=== PATIENT | female | born 1955 | race Caucasian/White ===

== ENCOUNTER → 2020-05-21 10:31 | Outpatient (CLI) | payer OTHER, SELFPAY ==
[2020-05-21] MEDS: COVID-19 VACC, Ad26(JANSSEN)/PF 0.5 ML IM (10:42)
== END ==
PROVIDERS: PCP Physician Assistant Medical; Visit Provider Internal Medicine
DX: Z23 Encounter for immunization (principal)
CPT/HCPCS: 0031A; 91303

== ENCOUNTER → 2020-06-11 07:20 | Outpatient (CLI) | payer OTHER, SELFPAY ==
[2020-06-11 08:14] LABS: Alanine Aminotransferase 26 IU/L (<35); Albumin 4.6 g/dL (3.5-5.0); Albumin Globulin Ratio 1.5 (1.0-2.8); Alkaline Phosphatase 53 U/L (38-126); Aspartate Aminotransferase 29 IU/L (14-36); BUN Creatinine Ratio 20.3 (6-22); Bilirubin Total 0.3 mg/dL (0.2-1.3); Blood Urea Nitrogen 12 mg/dL (7-17); Calcium 9.8 mg/dL (8.4-10.2); Carbon Dioxide 29 mmol/L (22-32); Chloride 102 mmol/L (98-107); Cholesterol 270 mg/dL (140-199); Estimated Glomerular Filt Rate > 60.0 mL/min (>60); Glucose 103 mg/dL (80-110); HDL Cholesterol 97 mg/dL (40-60); HEMOLYSIS < 15 (0-50); LDL Cholesterol Calculated 161 mg/dL (<100); Sodium 138 mmol/L (137-145); Total Protein 7.6 g/dL (6.3-8.2); Triglycerides 61 mg/dL (35-150)
== END ==
PROVIDERS: PCP Internal Medicine; Referring Provider Internal Medicine; Visit Provider Internal Medicine
DX: Z13.220 Encounter for screening for lipoid disorders (principal); Z13.6 Encounter for screening for cardiovascular disorders
CPT/HCPCS: 36415; 80053; 80061

== ENCOUNTER → 2020-07-11 10:20 | Outpatient (CLI) | payer OTHER, SELFPAY ==
--- NOTE | 2020-07-11 10:22 | DI.MG.S_ITS ---
BILATERAL DIGITAL SCREENING MAMMOGRAM 3D/2D WITH CAD: 07/11/2020 CLINICAL: Routine screening. Comparison is made to exams dated: 02/21/2019 mammogram, 04/08/2018 mammogram, and 04/07/2016 mammogram - outside location. The tissue of both breasts is heterogeneously dense. This may lower the sensitivity of mammography. Current study was also evaluated with a Computer Aided Detection (CAD) system. No significant masses, calcifications, or other findings are seen in either breast. There has been no significant interval change. IMPRESSION: NEGATIVE There is no mammographic evidence of malignancy. A 1 year screening mammogram is recommended. This exam was interpreted at Station ID: [id number]. NOTE: For mammograms, a report in lay terms will be sent to the patient. Approximately 15% of breast malignancies will not be visualized mammographically. In the management of a palpable breast mass, a negative mammogram must not discourage biopsy of a clinically suspicious lesion. Electronically Signed By: Phil manzo/don:07/11/2020 11:14:15 letter sent: Normal Exam ACR BI-RADS Category 1: Negative 3341F
== END ==
PROVIDERS: PCP Internal Medicine; Referring Provider Internal Medicine; Visit Provider Internal Medicine
DX: Z12.31 Encounter for screening mammogram for malignant neoplasm of breast (principal)
CPT/HCPCS: 77063; 77067

== ENCOUNTER → 2021-07-16 07:58 | Outpatient (CLI) | payer OTHER, SELFPAY ==
--- NOTE | 2021-07-16 | DI.MG.S_ITS ---
BILATERAL DIGITAL SCREENING MAMMOGRAM 3D/2D WITH CAD: 07/16/2021 CLINICAL: Routine screening. Comparison is made to exams dated: 07/11/2020 mammogram - [facility], 02/21/2019 mammogram, and 04/08/2018 mammogram - outside location. The tissue of both breasts is heterogeneously dense. This may lower the sensitivity of mammography. Current study was also evaluated with a Computer Aided Detection (CAD) system. No significant masses, calcifications, or other findings are seen in either breast. There has been no significant interval change. IMPRESSION: NEGATIVE There is no mammographic evidence of malignancy. A 1 year screening mammogram is recommended. This exam was interpreted at Station ID: [id number]. NOTE: For mammograms, a report in lay terms will be sent to the patient. Approximately 15% of breast malignancies will not be visualized mammographically. In the management of a palpable breast mass, a negative mammogram must not discourage biopsy of a clinically suspicious lesion. Electronically Signed By: Nellie perla/don:07/16/2021 12:08:22 letter sent: Normal Exam ACR BI-RADS Category 1: Negative 3341F
== END ==
PROVIDERS: PCP Internal Medicine; Referring Provider Internal Medicine; Visit Provider Internal Medicine
DX: Z12.31 Encounter for screening mammogram for malignant neoplasm of breast (principal)
CPT/HCPCS: 77063; 77067

== ENCOUNTER → 2021-10-11 14:24 | Outpatient (CLI) | payer OTHER, SELFPAY ==
[2021-10-11 15:01] LABS: Add Manual Diff / Slide Review NO; Basophils Absolute Auto 100 /uL (0-100); Basophils Percent Auto 1.2 % (0-2); Eosinophils Absolute Auto 100 /uL (0-450); Eosinophils Percent Auto 1.3 % (2-4); Hematocrit 41.4 % (36-46); Hemoglobin 13.7 g/dL (12.0-16.0); Lymphocytes Absolute Auto 2200 /uL (1100-4500); Lymphocytes Percent Auto 30.7 % (25-40); Mean Corpuscular HGB Conc 33.2 % (30-36); Mean Corpuscular Hemoglobin 30.4 PG (26-34); Mean Corpuscular Volume 91.6 fL (80-100); Monocytes Absolute Auto 400 /uL (0-900); Monocytes Percent Auto 5.6 % (3-14); Neutrophils Absolute Auto 4500 /uL (1500-7000); Neutrophils Percent Auto 61.2 % (50-75); Platelet Count 267 X10^3/uL (150-400); Red Blood Cell Count 4.52 X10^6/uL (4.0-5.2); White Blood Cell Count 7.3 X10^3/uL (4.5-11.0)
[2021-10-11 15:38] LABS: Aspartate Aminotransferase 29 IU/L (14-36); BUN Creatinine Ratio 22.6 (6-22); Bilirubin Total 0.2 mg/dL (0.2-1.3); Blood Urea Nitrogen 14 mg/dL (7-17); Calcium 9.7 mg/dL (8.4-10.2); Carbon Dioxide 27 mmol/L (22-32); Chloride 101 mmol/L (98-107); Creatine Kinase 113 U/L (30-135); Estimated Glomerular Filt Rate > 60 mL/min (>60); Glucose 108 mg/dL (80-110); Sodium 139 mmol/L (137-145)
[2021-10-11 15:39] LABS: Alanine Aminotransferase 32 IU/L (<35); Albumin 4.7 g/dL (3.5-5.0); Albumin Globulin Ratio 1.5 (1.0-2.8); Alkaline Phosphatase 59 U/L (38-126); C-Reactive Protein Quant < 0.5 mg/dL (<1.0); Globulin 3.1 g/dL (1.7-4.1); HEMOLYSIS < 15 (0-50); Total Protein 7.8 g/dL (6.3-8.2)
[2021-10-11 15:53] LABS: Free T4, Direct Thyroxine 0.92 ng/dL (0.78-2.19)
[2021-10-11 16:02] LABS: Erythrocyte Sedimentation Rate 6 MM/HR (0-20)
[2021-10-11 16:07] LABS: Thyroid Stimulating Hormone 1.72 uIU/mL (0.47-4.68)
== END ==
PROVIDERS: PCP Internal Medicine; Referring Provider Internal Medicine; Visit Provider Internal Medicine
DX: M79.10 Myalgia, unspecified site (principal); M81.0 Age-related osteoporosis without current pathological fracture; R11.0 Nausea; R53.83 Other fatigue
CPT/HCPCS: 36415; 80053; 82550; 84439; 84443; 85025; 85651; 86140

== ENCOUNTER → 2021-10-17 16:00 | Outpatient (CLI) | payer OTHER, SELFPAY ==
[2021-10-17 17:56] LABS: Appearance Urine UA CLEAR; Bilirubin Urine UA NEGATIVE (NEGATIVE); Color Urine UA YELLOW; Glucose Urine UA NEGATIVE (Negative); Ketones Urine UA NEGATIVE (NEGATIVE); Leukocyte Esterase Urine UA NEGATIVE (NEGATIVE); Nitrite Urine UA NEGATIVE (Negative); Occult Blood Urine UA 1+ (Negative); Protein Urine UA NEGATIVE (Negative); Urobilinogen Urine UA 0.2 E.U./dL (0.2)
[2021-10-17 18:28] LABS: pH Urine UA 5.5 (4.5-8.0)
[2021-10-17 18:31] LABS: RBC Urine 0-1/HPF (0-5/HPF); WBC Urine None Seen (0-5/HPF)
[2021-10-17 18:32] LABS: Bacteria Urine None Seen; Culture Indicated Urine Cult Not Indicated
== END ==
PROVIDERS: PCP Internal Medicine; Referring Provider Internal Medicine; Visit Provider Internal Medicine
DX: R30.0 Dysuria (principal)
CPT/HCPCS: 81001

== ENCOUNTER → 2021-10-24 09:25 | Outpatient (CLI) | payer OTHER, SELFPAY ==
--- NOTE | 2021-10-24 09:26 | DI.CT.S_ITS ---
PROCEDURE: CT KIDNEY URETER BLADDER (KUB) INDICATIONS: r/o structural abnormalities TECHNIQUE: Axial sections were acquired from the lung bases to the pubic symphysis. Coronal and sagittal reformats were performed. For radiation dose reduction, the following was used: automated exposure control, adjustment of mA and/or kV according to patient size. COMPARISON: None. FINDINGS: Image quality: Excellent. Lung bases: Unremarkable. Heart: No significant findings. URINARY: Right Kidney: No stones or hydronephrosis. Right Ureter: Where visualized the right ureter demonstrates normal course and caliber. No hydroureter or ureterolithiasis. Left Kidney: No stones or hydronephrosis. Left Ureter: Where visualized the left ureter demonstrates normal course and caliber. No hydroureter or ureterolithiasis. Bladder: Normal wall thickness. No stones. ABDOMEN: Liver: Unremarkable. Gallbladder: Unremarkable. Biliary ducts: Unremarkable. Pancreas: Unremarkable. Spleen: Unremarkable. Adrenal Glands: Unremarkable. Stomach and Bowel: Stomach, small bowel loops, and colon are unremarkable. The tip of the appendix measures 8 mm in diameter. There is no periappendiceal fat stranding or free fluid. There are scattered sigmoid diverticula. No evidence for diverticulitis. Peritoneum: No abnormal intraperitoneal fluid. No free air. Ventral Wall: No hernia. Abdominal Nodes: No enlarged retroperitoneal or mesenteric lymph nodes. Vessels: Aorta and inferior vena cava are normal in size. PELVIS: Pelvic Organs: Unremarkable. Pelvic Nodes: Unremarkable. Miscellaneous: No inguinal hernias are seen. Bones: Unremarkable. IMPRESSION: 1. No hydronephrosis, nephrolithiasis, hydroureter, or ureterolithiasis. 2. Diverticulosis. No acute diverticulitis. 3. The tip of the appendix appears mildly thickened. There are no inflammatory changes such as periappendiceal fat stranding or free fluid to suggest acute appendicitis. No appendicoliths visualized. This is a nonspecific finding, and may represent a normal variant. However, differential considerations include appendiceal tumors. Consider nonemergent surgical consultation for follow-up. Dictated by: Bianca Nickerson M.D. on 10/24/2021 at 11:22 Approved by: Bianca Nickerson M.D. on 10/24/2021 at 11:28
== END ==
PROVIDERS: PCP Internal Medicine; Referring Provider Internal Medicine; Visit Provider Internal Medicine
DX: R31.9 Hematuria, unspecified (principal); K57.30 Diverticulosis of large intestine without perforation or abscess without bleeding
CPT/HCPCS: 74176

== ENCOUNTER → 2021-11-13 08:00 | Outpatient (CLI) | payer OTHER, SELFPAY ==
[2021-11-13 08:31] LABS: BUN Creatinine Ratio 13.8 (6-22); Blood Urea Nitrogen 9 mg/dL (7-17); Calcium 9.5 mg/dL (8.4-10.2); Carbon Dioxide 31 mmol/L (22-32); Chloride 105 mmol/L (98-107); Estimated Glomerular Filt Rate > 60 mL/min (>60); Glucose 73 mg/dL (80-110); HEMOLYSIS < 15 (0-50); Potassium 4.5 mmol/L (3.4-5.1); Sodium 139 mmol/L (137-145)
--- NOTE | 2021-11-13 08:37 | DI.CT.S_ITS ---
PROCEDURE: CT IVP A/P W/WO INDICATIONS: Hematuria TECHNIQUE: Optional 5 mm thick noncontrast images acquired from the diaphragm to the symphysis pubis. After the administration of intravenous contrast, 5 mm thick images acquired from the diaphragm to the symphysis pubis after a 10-minute delay. 2 mm thick coronal and sagittal reformats were then performed of the kidneys and ureters. For radiation dose reduction, the following was used: automated exposure control, adjustment of mA and/or kV according to patient size. COMPARISON: None. FINDINGS: Image quality: Excellent. Lung bases: Lung bases are clear. Heart size is normal. Solid organs: Liver: The liver has no mass or intrahepatic biliary ductal dilatation. The portal vein and hepatic veins are patent. Biliary: The gallbladder has no gallstones, pericholecystic fluid, gallbladder wall thickening, or surrounding inflammatory change. Pancreas: The pancreas has no mass or ductal dilatation. There is no surrounding inflammation. Spleen: Normal size. There are no masses. Adrenals: No hypertrophy or nodules. Kidneys: No obstructive calculus or hydronephrosis. No solid mass. No cystic mass. Peritoneum and bowel: The distal esophagus and stomach are normal. The small bowel has a normal caliber and appearance. The terminal ileum is normal. The large bowel has a normal caliber and appearance. The appendix is normal. No free fluid or air. Nodes and vessels: No retroperitoneal or mesenteric adenopathy by size criteria. The aorta has atherosclerosis with no aneurysmal dilatation. Miscellaneous: No abdominal wall mass or hernia. PELVIS: Genitourinary: The bladder has no wall thickening or mass. No bladder calcifications. Bones: No suspicious bony lesions. No vertebral body compression fractures. IMPRESSION: 1. No nephroureteral calculi. 2. No abnormal enhancement of the kidneys. No solid renal masses. 3. No filling defects on delayed phase images in the collecting systems, ureter, or bladder.. Dictated by: Fan Ornelas M.D. on 11/13/2021 at 13:20 Approved by: Fan Ornelas M.D. on 11/13/2021 at 13:47
== END ==
PROVIDERS: PCP Internal Medicine; Referring Provider Urology; Visit Provider Urology
DX: R31.9 Hematuria, unspecified (principal); Z01.812 Encounter for preprocedural laboratory examination
CPT/HCPCS: 36415; 74178; 80048

== ENCOUNTER → 2022-01-29 10:09 | Outpatient (CLI) | payer OTHER, SELFPAY ==
[2022-01-29 11:28] LABS: BUN Creatinine Ratio 17.2 (6-22); Blood Urea Nitrogen 10 mg/dL (7-17); Estimated Glomerular Filt Rate > 60 mL/min (>60)
== END ==
PROVIDERS: PCP Internal Medicine; Referring Provider Surgery; Visit Provider Surgery
DX: R93.5 Abnormal findings on diagnostic imaging of other abdominal regions, including retroperitoneum (principal)
CPT/HCPCS: 36415; 82565; 84520

== ENCOUNTER → 2022-02-05 10:43 | Outpatient (CLI) | payer OTHER, SELFPAY ==
--- NOTE | 2022-02-05 12:28 | DI.CT.S_ITS ---
PROCEDURE: CT ABDOMEN PELVIS W CON INDICATIONS: Questionable thickening of the appendix on CT scan TECHNIQUE: After the administration of oral and IV contrast, axial sections were acquired from the lung bases to the pubic symphysis. Coronal and sagittal reformats were performed. For radiation dose reduction, the following was used: automated exposure control, adjustment of mA and/or kV according to patient size. COMPARISON: [facility], CT, CT IVP A/P W/WO, 11/13/2021, 8:41. FINDINGS: Image quality: Excellent. Lung bases: Mild gravitational changes. No hiatal hernia. Heart: Normal heart size. ABDOMEN: Liver: Occasional tiny hypodensities, cysts or hamartomas. Gallbladder: Normal. Biliary ducts: Nondilated. Pancreas: Normal. Spleen: Normal. Adrenal Glands: No nodules. Kidneys and Ureters: Symmetric enhancement. No nephrolithiasis or hydronephrosis. No hydroureter. Stomach and Bowel: Stomach, small bowel loops, and colon are unremarkable. The retrocecal appendix contains fluid and measures 8 mm in diameter. It tapers slightly towards the cecal origin. No calcified appendicolith is identified. There are no periappendiceal inflammatory changes. This diameter is consistent compared to prior studies, specifically October and November. Peritoneum: No abnormal intraperitoneal fluid. No free air. Ventral Wall: No hernia. Abdominal Nodes: Several small right lower quadrant mesenteric lymph nodes are immediately adjacent to the appendix. No retroperitoneal, or other mesenteric adenopathy. Vessels: Aorta and inferior vena cava are normal in size. PELVIS: Pelvic Organs: Uterus and ovaries appear normal. Bladder: Normal wall thickness. Pelvic Nodes: No enlarged lymph nodes. Miscellaneous: No inguinal hernias are seen. Bones: Unremarkable. IMPRESSION: 1. Mildly dilated, retrocecal appendix with distal fluid and reactive mesenteric adenopathy. Differential considerations include chronic/recurrent appendicitis, appendiceal tumor, or normal physiologic appearance. Correlate with any symptoms. Dictated by: Nellie Martinez M.D. on 02/05/2022 at 14:13 Approved by: Nellie Martinez M.D. on 02/05/2022 at 14:25
== END ==
PROVIDERS: PCP Internal Medicine; Referring Provider Surgery; Visit Provider Surgery
DX: R93.5 Abnormal findings on diagnostic imaging of other abdominal regions, including retroperitoneum (principal); R59.0 Localized enlarged lymph nodes
CPT/HCPCS: 74177

== ENCOUNTER → 2022-03-11 11:22 | Outpatient (CLI) | payer OTHER, SELFPAY ==
[2022-03-11 12:06] LABS: COVID19 -Nasal RAPID Negative (Negative)
== END ==
PROVIDERS: PCP Internal Medicine; Visit Provider Surgery
DX: Z01.812 Encounter for preprocedural laboratory examination (principal); Z20.822 Contact with and (suspected) exposure to COVID-19
CPT/HCPCS: 87635

== ENCOUNTER 2022-03-11 12:53 | Day surgery (SDC) | payer OTHER, SELFPAY ==
[2022-03-05 08:18] VITALS: BMI 21.1
[2022-03-11] VITALS (8 sets, daily range): BP systolic 88–144; BP diastolic 40–86; PULSE 85–107; RESP 13–20; TEMP 36.4–36.6; O2SAT 99–100; BMI 20.7
--- NOTE | 2022-03-11 | PATH_ITS ---
[facility] Accession Number: [id number] . 01 Material submitted: . appendix - APPENDIX . 01 Diagnosis: Appendix, Appendectomy: Vermiform appendix with mild chronic inflammation without evidence of significant active inflammation identified. Negative for dysplasia and malignancy. MRV 03/13/2022 1331 Local . 01 Electronically signed: . Loree Soto MD, Pathologist NPI- [id number] . 01 Gross description: . The specimen is received in formalin labeled with the patient's name, , and appendix, and consists of a vermiform appendix measuring 4.0 cm in length by 0.8 cm in diameter with sanchez smooth serosa, congested vasculature and no perforations identified. A moderate amount of attached mesoappendix is identified measuring up to 1.2 cm. The surgical margin is received closed with a purple suture, is inked blue, and sectioning reveals the lumen to contain pale sanchez semi-solid material with the luminal diameter ranging from 0.3 to 0.5 cm. The pratt are sanchez and intact and average 0.3 cm thick. No lesions are identified. City Carrier Assistant sections to include the cystic duct margin, one half of the bisected distal tip and cross-sections are submitted in cassette A1. ([id number]) /DAMON 03/12/2022 1150 Local . 01 Pathologist provided ICD-10: K37, R93.5 . 01 CPT . 360339 Specimen Comment: A courtesy copy of this report has been sent to [phone] Performed at: 01 [facility] [address] [place] [address] Suite [facility], [place], [place] [id number] MD Cayetano Gilliam MD Phone: [phone]
[2022-03-11] MEDS: LACTATED RINGERS 1,000 ML 42 ML IV ×2 (13:47→17:18)
[2022-03-11] MEDS: PIPERACILLIN/TAZO 3.375 GM in SODIUM CHLORIDE 0.9% 100 ML IV (16:39)
--- NOTE | 2022-03-11 16:54 | SUR.OPER ---
Supine on padded OR bed, head on pillow, left arm padded and tucked at sides, right arm on padded arm board and at <90 degrees abduction, legs uncrossed, safety belt at thigh, tape over blanket over lower legs .
[2022-03-11] MEDS: BUPIVACAINE 0.5% W/ EPI (PF) 30 ML VIAL INJ (17:01)
--- NOTE | 2022-03-11 17:13 | PM.HP.1 ---
History of Present Illness History of Present Illness Date Patient Seen: 03/11/22 Time Patient Seen: 17:13 Chief complaint: Abnormal imaging of the appendix Narrative: Virginia is a 66-year-old woman who has had a CT scan that showed a questionable abnormally enlarged appendix. She is here for a laparoscopic appendectomy. See the prior office notes for details. Patient History Medical History (Updated 03/05/22 @ 08:20 by Traci Quach RN) Chicken pox COVID-19 virus infection (02/07/22) Elevated cholesterol Fractures H/O abnormal mammogram Hematuria History of tobacco use Measles Mumps Osteoporosis (~2015) Shoulder injury Vertigo (~1995) Surgical History Anesthesia S/P section (11/19/90) Family & Social History Family History Father Diabetes mellitus Hypertension Stroke Mother Suicide Grandmother Stroke Cancer Grandfather History of heart disease Grandmother Cancer Sister Diabetes mellitus Social History: household members spouse Tobacco & Substance use: Tobacco type cigarettes Smoking Status Former smoker alcohol intake current alcohol intake frequency 0-2 drinks per day Substance Use Type does not use Meds Home Medications and Allergies Home Medications Medication Instructions Recorded Confirmed Type cholecalciferol (vitamin D3) 50 50 mcg PO DAILY 03/05/22 03/11/22 History mcg (2,000 unit) capsule (Vitamin D3) vit C 250 mg-vit E 90 mg-zinc 40 1 tab PO BID 03/05/22 03/11/22 History mg-copper 1 uo-[id number]-qazcls capsule (PreserVision AREDS-2) [id number] 1 tab PO DAILY 03/05/22 03/11/22 History 18 mg-10 mg-45 mg-5 mg-250 mg tablet (B Complex w-Vit C) Allergies Allergy/AdvReac Type Severity Reaction Status Date / Time lactose Allergy Severe Intolerance Verified 03/05/22 08:22 Sulfa (Sulfonamide Allergy Severe Trouble Verified 03/05/22 08:22 Antibiotics) breathing, anaplylaxtic, rash atorvastatin AdvReac Mild dizziness Verified 12/24/21 10:47 perservatives Allergy Intermediate Swelling Uncoded 12/24/21 10:47 of lips. perservatives in eye drops Allergy Intermediate Makes eyes Uncoded 12/24/21 10:47 redder. Exam Vital Signs (past 8 hours): - 03/11/22 13:19 Temperature 97.9 F Pulse Rate 107 H Respiratory Rate 16 Blood Pressure 144/86 H Pulse Oximetry 100 Oxygen Delivery Method Room Air Oxygen Delivery Method Room Air Const General: healthy appearing Assessment & Plan Assessment and plan (1) Abnormal CT of the abdomen: Status: Acute Plan We reviewed the risks and benefits of a laparoscopic appendectomy for abnormal imaging of the appendix and she would like to proceed. Time Spent With Patient Critical Care time: I spent a total of [] minutes of critical care time on this patient's care today; this time is exclusive of procedural time.
--- NOTE | 2022-03-11 17:20 | PM.OP.1 ---
Operative Date/Time/Diagnoses Date of procedure: 03/11/22 Time of procedure: 17:20 Pre-op diagnosis: Abnormal imaging of the appendix Post-op diagnosis: same Procedure & Clinicians Procedure: Laparoscopic appendectomy Same procedure as scheduled: Yes Surgeon: Arron Scott Operative Notes Procedure in detail: Procedure in detail: The patient was on IV antibiotics. The patient was brought to the operating room, placed on the table in the supine position and general endotracheal anesthesia was induced. A time-out was performed. The abdomen was prepped and draped in the usual fashion. After injection of 0.25% Marcaine a 1 cm infraumbilical incision was created with a 15 blade scalpel. The umbilical stalk was grasped with a Korina clamp to elevate the abdominal wall. The infraumbilical midline fascia was cleared over 1 cm and the fascia was scored with cautery. The peritoneum was pierced with a Peon clamp. The Julia port was placed and the abdomen was insufflated to 15 mmHg. The camera was inserted and there was no evidence of any injury from the entry. Next, 5 mm ports were placed in the suprapubic and left lower quadrant positions under direct vision. The patient was placed in Trendelenburg with the right-side elevated. The terminal ileum was swept away from the cecum and the appendix was visualized. The appendix was not inflamed. It was mildly enlarged at the tip there was no obvious mass that could be seen grossly. The mesoappendix was divided with the power seal to its base at the cecum. Three PDS Endoloops were placed at the base and a fourth endoloop was placed about a cm distally and the appendix was divided sharply. The specimen was placed in a Endo-Catch bag. The table was flattened and the terminal ileum and omentum were allowed to slide in over the appendiceal stump. Finally, the 5 mm ports were removed under direct vision. The pneumoperitoneum was released and the Julia port was removed followed by the Endo-Catch bag. Additional local was injected into the fascia and the infraumbilical incision was closed with 2 interrupted 2-0 Vicryl sutures. The skin incisions were closed with 4 Monocryl. Steri-Strips were applied followed by Band-Aids. EBL: 2 mL Specimen: Appendix Post-operative Condition: stable Disposition: PACU
== END 2022-03-11 18:32 | disposition home or self-care (01) ==
PROVIDERS: PCP Internal Medicine; Referring Provider Surgery; Visit Provider Surgery
PROC: 0DTJ4ZZ Resection of Appendix, Percutaneous Endoscopic Approach (ICD-10-PCS; CPT 44970; principal; 2022-03-11 13:45)
DX: K36 Other appendicitis (principal); Z20.822 Contact with and (suspected) exposure to COVID-19; Z01.812 Encounter for preprocedural laboratory examination
CPT/HCPCS: 44970; 87635; C9803; J1100; J2250; J2405; J2543; J2704; J3010

== ENCOUNTER → 2023-02-03 10:01 | Outpatient (CLI) | payer OTHER, SELFPAY ==
--- NOTE | 2023-02-03 | DI.MG.S_ITS ---
BILATERAL DIGITAL SCREENING MAMMOGRAM 3D/2D WITH CAD: 02/03/2023 CLINICAL: Routine screening. Comparison is made to exams dated: 07/16/2021 mammogram, 07/11/2020 mammogram - [facility], and 02/21/2019 mammogram - outside location. There are scattered areas of fibroglandular density in both breasts (category b / 25%-50% glandular tissue). Current study was also evaluated with a Computer Aided Detection (CAD) system. No significant masses, calcifications, or other findings are seen in either breast. There has been no significant interval change. IMPRESSION: NEGATIVE There is no mammographic evidence of malignancy. A 1 year screening mammogram is recommended. Based on the Tyrer Cuzick model (a risk assessment model) the patient's lifetime risk is 7.0% and her 10 year risk is 3.4%. According to the ACR, ACS, and NCCN guidelines, an annual breast MRI exam along with mammogram is recommended if the patient's lifetime risk is 20% or greater. This exam was interpreted at Station ID: [id number]. NOTE: For mammograms, a report in lay terms will be sent to the patient. Approximately 15% of breast malignancies will not be visualized mammographically. In the management of a palpable breast mass, a negative mammogram must not discourage biopsy of a clinically suspicious lesion. Electronically Signed By: Bianca mccann/don:02/03/2023 15:17:43 letter sent: Normal Exam ACR BI-RADS Category 1: Negative 3341F
== END ==
PROVIDERS: PCP Internal Medicine; Referring Provider Internal Medicine; Visit Provider Internal Medicine
DX: Z12.31 Encounter for screening mammogram for malignant neoplasm of breast (principal)
CPT/HCPCS: 77063; 77067

== ENCOUNTER 2023-07-10 09:11 | Emergency (ER) | payer OTHER, SELFPAY ==
[2023-07-10 09:22] VITALS: BP 142/78; PULSE 82; RESP 14; TEMP 36.6; O2SAT 99; BMI 21.7
[2023-07-10 09:29] VITALS: PULSE 70
--- NOTE | 2023-07-10 10:14 | ED.EXTPRO ---
HPI - Extremity Problem General Chief complaint: Extremity Problem,Nontraumatic Stated complaint: firger turning black Time Seen by Provider: 07/10/23 09:17 Source: patient Mode of arrival: Ambulatory Limitations: no limitations History of Present Illness HPI Narrative: 67-year-old female with no reported medical issues who presents with concern for discoloration of her middle finger on her right hand. Patient states it is bluish black she noticed it starting yesterday sort of on the underside in the middle has since spread throughout the finger. She states that she was using garden per nurse for the past week and has been using them regularly on that hand. She does sometimes get a blue streak in that finger when she carries heavy things such as grocery sacs but typically resolves. She has no pain she has no numbness she has no tingling. She is able to flex and extend it fully. She states that has not uncomfortable. The bruising throughout the finger and a little bit dark over the last day. She states no anticoagulants no daily medications she has not having any inappropriate bruising or skin changes elsewhere. She denies any other medical issues. She was sent from the walk-in clinic after they saw her. O2 sat probe here in the department is normal oxygenation. Related Data Home Medications Medication Instructions Recorded Confirmed cholecalciferol (vitamin D3) 50 50 mcg PO DAILY 03/05/22 07/10/23 mcg (2,000 unit) capsule (Vitamin D3) vit C 250 mg-vit E 90 mg-zinc 40 1 tab PO BID 03/05/22 07/10/23 mg-copper 1 fj-emcesq-kthoob capsule (PreserVision AREDS-2) [id number] 1 tab PO DAILY 03/05/22 07/10/23 18 mg-10 mg-45 mg-5 mg-250 mg tablet (B Complex w-Vit C) Allergies Allergy/AdvReac Type Severity Reaction Status Date / Time lactose Allergy Severe Intolerance Verified 07/10/23 09:26 Sulfa (Sulfonamide Allergy Severe Trouble Verified 07/10/23 09:26 Antibiotics) breathing, anaplylaxtic, rash atorvastatin AdvReac Mild dizziness Verified 07/10/23 09:26 perservatives Allergy Intermediate Swelling Uncoded 07/10/23 08:40 of lips. perservatives in eye drops Allergy Intermediate Makes eyes Uncoded 07/10/23 08:40 redder. Review of Systems Review of Systems ROS Unobtainable: All systems reviewed & are unremarkable except as noted in HPI and below Patient History Medical History COVID-19 virus infection (02/07/22) Elevated cholesterol History of tobacco use Hematuria Shoulder injury Fractures Mumps Measles Chicken pox Vertigo (~1995) H/O abnormal mammogram Osteoporosis (~2015) Surgical History Anesthesia S/P section (11/19/90) Family History Father Diabetes mellitus Hypertension Stroke Mother Suicide Grandmother Stroke Cancer Grandfather History of heart disease Grandmother Cancer Sister Diabetes mellitus Social History marital status: number of children: 1 household members: spouse Smoking Status: Former smoker alcohol intake: current caffeine: Yes Type(s) of exercise: walking frequency: 3-4 times per week duration: > 90 minutes/day Smoking Status: Former smoker alcohol intake frequency: 0-2 drinks per day Substance Use Type: does not use Exam Narrative Exam Narrative: GENERAL: Alert and oriented x three, female in no acute distress HEENT: Head normocephalic, atraumatic, EOMI, pupils reactive, face symmetric, moist mucous membranes NECK: Supple, full range of motion CARDIOVASCULAR: Regular rate and rhythm without murmurs, rubs or gallops. RESPIRATORY: Breath sounds equal bilaterally, no wheezes rales or rhonchi. EXTREMITIES: Normal range of motion, no clubbing. Neurovascularly intact. Patient is nontender throughout entire hand. She is 2+ radial pulse. She does have refill of all 5 fingers. Patient has what appears to be ecchymosis of the 3rd finger throughout the entire finger dorsum and volar side. She is some very mild swelling, there is no warmth there is no erythema, there is no pallor. Temperature is same on all 5 fingers. She has normal sensation throughout. NEUROLOGICAL: Cranial nerves II through XII grossly intact. Moving all extremities SKIN: Warm, dry, no petechiae, no rashes or lesions. Initial Vital Signs Initial Vital Signs: Vital Signs Temperature 97.8 F 07/10/23 09:22 Pulse Rate 82 07/10/23 09:22 Respiratory Rate 14 07/10/23 09:22 Blood Pressure 142/78 H 07/10/23 09:22 Pulse Oximetry 99 07/10/23 09:22 Oxygen Delivery Method Room Air 07/10/23 09:22 Course Vital Signs Vital signs: Vital Signs - 8 hr 07/10/23 09:22 07/10/23 09:29 Temperature 97.8 F Pulse Rate 82 Pulse Rate [Right Radial] 70 Respiratory Rate 14 Blood Pressure 142/78 H Pulse Oximetry 99 Oxygen Delivery Method Room Air MDM - Extremity (Nontraumatic) MDM Narrative Medical decision making narrative: Patient had repeated trauma to her finger using guarding per nurse throughout the past week and noticed increasing discoloration of her 3rd finger her right hand over the past 2 days she was able to show me pictures that is stroke it started on the dorsum and spread. It has not spread anywhere else she has not had any other inappropriate bruising, her exam is otherwise reassuring. She had pulse ox on that finger specifically that is normal. Discussed with patient appears she has a ecchymosis likely from trauma from pruning rei she notes this sometimes happens but to a lesser degree when she carries heavy groceries checked on that finger. Patient and I discussed probably traumatized the blood vessel and caused bleeding. Discussed return precautions. Discharge Plan Departure Patient Disposition: Home Clinical Impression: Traumatic ecchymosis of finger Activity Restrictions/Additional Instructions: Follow up as needed. You appear to have developed ecchymosis or bruising from mild trauma from using your pruning rei. This is a take 1-2 weeks to resolve. If you develop new pain, bruising that is in other locations or continuing to spread, new numbness tingling or weakness, increasing swelling or other new or concerning changes please return to the emergency department. Prescriptions: No Action B Complex w-Vit C 89-01-84-5-250 mg Tablet 1 tab PO DAILY PreserVision AREDS-2 250-90-40-1 mg Capsule 1 tab PO BID cholecalciferol (vitamin D3) [Vitamin D3] 50 mcg (2,000 unit) Capsule 50 mcg PO DAILY Referrals: Cristopher Torres MD [Primary Care Provider] - Stand Alone Forms: Patient Portal/API
== END 2023-07-10 10:30 | disposition home or self-care (01) ==
PROVIDERS: Emergency Provider Emergency Medicine; PCP Internal Medicine
DX: S60.031A Contusion of right middle finger without damage to nail, initial encounter (principal); X58.XXXA Exposure to other specified factors, initial encounter; Y93.H2 Activity, gardening and landscaping
CPT/HCPCS: 99281; 99282

== ENCOUNTER → 2024-01-05 06:47 | Outpatient (CLI) | payer OTHER, SELFPAY ==
[2024-01-05 09:10] LABS: Alanine Aminotransferase 28 IU/L (<35); Albumin 4.5 g/dL (3.5-5.0); Albumin Globulin Ratio 1.6 (1.0-2.8); Alkaline Phosphatase 50 U/L (38-126); Aspartate Aminotransferase 29 IU/L (14-36); BUN Creatinine Ratio 21.3 (6-22); Bilirubin Total 0.5 mg/dL (0.2-1.3); Blood Urea Nitrogen 13 mg/dL (7-17); Calcium 9.8 mg/dL (8.4-10.2); Carbon Dioxide 27 mmol/L (22-32); Chloride 102 mmol/L (98-107); Cholesterol 266 mg/dL (140-199); Estimated Glomerular Filt Rate > 60 mL/min (>60); Globulin 2.9 g/dL (1.7-4.1); Glucose 98 mg/dL (80-110); HDL Cholesterol 105 mg/dL (40-60); HEMOLYSIS < 15 (0-50); LDL Cholesterol Calculated 149 mg/dL (<100); Potassium 4.2 mmol/L (3.4-5.1); Sodium 135 mmol/L (137-145); Total Protein 7.4 g/dL (6.3-8.2); Triglycerides 60 mg/dL (35-150)
== END ==
PROVIDERS: PCP Internal Medicine; Referring Provider Internal Medicine; Visit Provider Internal Medicine
DX: E78.5 Hyperlipidemia, unspecified (principal); Z13.1 Encounter for screening for diabetes mellitus
CPT/HCPCS: 36415; 80053; 80061

== ENCOUNTER → 2024-02-13 07:58 | Outpatient (CLI) | payer OTHER, SELFPAY ==
--- NOTE | 2024-02-13 | DI.MG.S_ITS ---
BILATERAL DIGITAL SCREENING MAMMOGRAM 3D/2D WITH CAD: 02/13/2024 CLINICAL: Routine screening. Comparison is made to exams dated: 02/03/2023 mammogram, 07/16/2021 mammogram, and 07/11/2020 mammogram - [facility]. The breasts are heterogeneously dense, which may obscure small masses (category c / 51-75% glandular tissue). Current study was also evaluated with a Computer Aided Detection (CAD) system. No significant masses, calcifications, or other findings are seen in either breast. There has been no significant interval change. IMPRESSION: NEGATIVE There is no mammographic evidence of malignancy. A 1 year screening mammogram is recommended. Based on the Tyrer Cuzick model (a risk assessment model) the patient's lifetime risk is 10.1% and her 10 year risk is 5.1%. According to the ACR, ACS, and NCCN guidelines, an annual breast MRI exam along with mammogram is recommended if the patient's lifetime risk is 20% or greater. This exam was interpreted at Station ID: [id number]. NOTE: For mammograms, a report in lay terms will be sent to the patient. Approximately 15% of breast malignancies will not be visualized mammographically. In the management of a palpable breast mass, a negative mammogram must not discourage biopsy of a clinically suspicious lesion. Electronically Signed By: Sudheer gilmore/don:02/15/2024 07:28:35 letter sent: Normal Exam ACR BI-RADS Category 1: Negative
== END ==
LOC: MAMMO 07:58
PROVIDERS: PCP Internal Medicine; Referring Provider Internal Medicine; Visit Provider Internal Medicine
DX: Z12.31 Encounter for screening mammogram for malignant neoplasm of breast (principal); R92.333 Mammographic heterogeneous density, bilateral breasts
CPT/HCPCS: 77063; 77067

== ENCOUNTER → 2025-02-14 08:26 | Outpatient (CLI) | payer OTHER, SELFPAY ==
--- NOTE | 2025-02-14 08:28 | DI.MG.S_ITS ---
MM screening mammo BI: 02/14/2025. BI-RADS: 1 CLINICAL: 69-year old female for bilateral screening mammogram. Tyrer-Cuzick lifetime risk of 5.2%. No personal or first-degree family history of breast cancer. PRIOR EXAMS 02/13/2024, 02/03/2023, 07/16/2021, 07/11/2020. MAMMOGRAPHY TECHNIQUE: 2D and 3D (tomosynthesis) digital mammographic views obtained, with additional images as needed for full coverage. Current study was also evaluated with a Computer Aided Detection (CAD) system. DENSITY C. The breasts are heterogeneously dense, which may obscure small masses. MAMMOGRAPHY FINDINGS Bilateral: No suspicious mass, asymmetry, microcalcification, or other abnormality seen. IMPRESSION: * No evidence of malignancy. RECOMMENDATIONS Bilateral * Annual screening mammography. OVERALL ASSESSMENT CATEGORY BI-RADS-1: Negative. The [employer] recommends annual screening mammography beginning at age 40 for women with average risk of breast cancer. ELECTRONICALLY SIGNED: Swathi Costello M.D. on 02/14/2025 at 04:53:06 PM PT Interpreting Station ID: [id number]
== END ==
LOC: MAMMO 08:27
PROVIDERS: PCP Internal Medicine; Referring Provider Internal Medicine; Visit Provider Internal Medicine
DX: Z12.31 Encounter for screening mammogram for malignant neoplasm of breast (principal); R92.333 Mammographic heterogeneous density, bilateral breasts
CPT/HCPCS: 77063; 77067